=== PATIENT | male | born 1960 | race American Indian/Alaskan Native ===

== ENCOUNTER 2019-01-04 21:07 | Emergency (ER) | payer OTHER ==
--- NOTE | 2019-01-04 21:17 | Emergency Department Report ---
Chief Complaint: Chest Pain Stated Complaint: CHEST PAINS Time Seen by Provider: 01/04/19 21:12 - HPI History of Present Illness: Pt c/o diffuse CP that began today radiates to the right shoulder and right scapula describes pain as pressure took tums due to thinking it was from indigestion without any relief no N/V, no diaphoresis (+) SOB pt states he took hctz 25mg, hydralazine 50 mg, and diltiazem 90 mg this morning markedly elevated BP, will send to main ED MSE complete MSE screening note: Focused history and physical exam performed. ED Disposition for MSE Condition: Stable
[2019-01-04 22:13] LABS: Basophils % (Auto) 0.3 % (0.0-1.8); Eosinophils # (Auto) 0.1 K/mm3 (0.0-0.4); Eosinophils % (Auto) 0.4 % (0.0-4.3); Hemoglobin 14.8 gm/dl (11.8-15.2); Lymphocytes # (Auto) 2.8 K/mm3 (1.2-5.4); Lymphocytes % (Auto) 19.6 % (13.4-35.0); Mean Corpuscular HGB Conc 34 % (32-34); Mean Corpuscular Volume 89 fl (84-94); Monocytes # (Auto) 1.2 K/mm3 (0.0-0.8); Platelet Count 246 K/mm3 (140-440); Red Blood Count 4.97 M/mm3 (3.65-5.03); Red Cell Distribution Width 13.6 % (13.2-15.2)
[2019-01-04 22:19] LABS: INR 0.87 (0.87-1.13)
[2019-01-04 22:20] LABS: Partial Thromboplastin Time 28.6 Sec. (24.2-36.6)
[2019-01-04] MEDS ORDERED: NORMODYNE IV ONE (22:31)
[2019-01-04] MEDS ORDERED: MORPHINE IV ONE (22:32)
[2019-01-04 22:36] LABS: Alanine Aminotransferase 23 units/L (7-56); Albumin 4.3 g/dL (3.9-5); BUN/Creatinine Ratio 16; Blood Urea Nitrogen 19 mg/dL (9-20); Calcium 9.5 mg/dL (8.4-10.2); Hemolysis Index 15
[2019-01-04] MEDS ORDERED: BENADRYL IV ONE (23:07)
[2019-01-04] MEDS ORDERED: BENADRYL ONE (23:10)
--- NOTE | 2019-01-04 23:59 | XRay Report ---
PROCEDURE: XR CHEST ROUTINE 2V TECHNIQUE: PA and lateral chest radiographs were obtained. HISTORY: CP COMPARISONS: None. FINDINGS: Heart: Normal. Mediastinum/Vessels: Normal. Lungs/Pleural space: Normal. Bony thorax: No acute osseous abnormality. IMPRESSION: Normal examination. This document is electronically signed by Divina Hernandez DO., January 04 2019 11:56:55 PM ET
[2019-01-05] MEDS ORDERED: HCTZ PO ONE (01:50)
[2019-01-05] MEDS ORDERED: APRESOLINE PO ONE (01:50)
--- NOTE | 2019-01-05 02:20 | Emergency Department Report ---
ED General Adult HPI - General Chief complaint: Chest Pain Stated complaint: CHEST PAINS Time Seen by Provider: 01/04/19 21:12 Source: patient Mode of arrival: Ambulatory Limitations: No Limitations - History of Present Illness Initial comments: Patient is a 58-year-old male who presents with right chest. The chest pain. Patient states that this occurred while was waken up. He denies cough or any shortness of breath. It radiates to his right shoulder. Nothing makes the pain better and nothing makes it worse. Patient works as a cook. Patient states that he doesn't smoke and he doesn't drink. Severity scale (0 -10): 2 - Related Data Home Medications Medication Instructions Recorded Confirmed Last Taken dilTIAZem [CarDIZEM] 90 mg PO DAILY 01/04/19 01/04/19 01/04/19 Previous Rx's Medication Instructions Recorded Last Taken Type Diclofenac Sodium [Voltaren] 100 gm TP Q6H #1 gel..gram. 01/05/19 Unknown Rx Hydralazine HCl 50 mg PO BID #30 tablet 01/05/19 Unknown Rx hydroCHLOROthiazide [HCTZ] 25 mg PO DAILY #30 tablet 01/05/19 Unknown Rx Allergies Allergy/AdvReac Type Severity Reaction Status Date / Time No Known Allergies Allergy Verified 01/04/19 23:16 ED Review of Systems ROS: Stated complaint: CHEST PAINS Other details as noted in HPI Constitutional: denies: chills, fever Eyes: denies: eye pain, eye discharge, vision change ENT: denies: ear pain, throat pain Respiratory: denies: cough, shortness of breath, wheezing Cardiovascular: chest pain. denies: palpitations Endocrine: no symptoms reported Gastrointestinal: denies: abdominal pain, nausea, diarrhea Genitourinary: denies: urgency, dysuria Musculoskeletal: denies: back pain, joint swelling, arthralgia Skin: denies: rash, lesions Neurological: denies: headache, weakness, paresthesias Psychiatric: denies: anxiety, depression Hematological/Lymphatic: denies: easy bleeding, easy bruising ED Past Medical Hx - Past Medical History Previous Medical History?: Yes Hx Hypertension: Yes - Surgical History Past Surgical History?: No - Social History Smoking Status: Current Every Day Smoker - Medications Home Medications: Home Medications Medication Instructions Recorded Confirmed Last Taken Type dilTIAZem [CarDIZEM] 90 mg PO DAILY 01/04/19 01/04/19 01/04/19 History Diclofenac Sodium [Voltaren] 100 gm TP Q6H #1 gel..gram. 01/05/19 Unknown Rx Hydralazine HCl 50 mg PO BID #30 tablet 01/05/19 Unknown Rx hydroCHLOROthiazide [HCTZ] 25 mg PO DAILY #30 tablet 01/05/19 Unknown Rx ED Physical Exam - General Limitations: No Limitations General appearance: alert, in no apparent distress - Head Head exam: Present: atraumatic, normocephalic - Eye Eye exam: Present: normal appearance - ENT ENT exam: Present: mucous membranes moist - Neck Neck exam: Present: normal inspection - Respiratory Respiratory exam: Present: normal lung sounds bilaterally. Absent: respiratory distress - Cardiovascular Cardiovascular Exam: Present: regular rate, normal rhythm. Absent: systolic murmur, diastolic murmur, rubs, gallop - GI/Abdominal GI/Abdominal exam: Present: soft, normal bowel sounds - Rectal Rectal exam: Present: deferred - Extremities Exam Extremities exam: Present: normal inspection - Back Exam Back exam: Present: normal inspection - Neurological Exam Neurological exam: Present: alert, oriented X3 - Psychiatric Psychiatric exam: Present: normal affect, normal mood - Skin Skin exam: Present: warm, dry, intact, normal color. Absent: rash ED Course Vital Signs 01/04/19 01/04/19 01/04/19 21:11 21:12 22:15 Temperature 97.8 F 97.8 F Pulse Rate 88 82 Respiratory 18 18 33 H Rate Blood Pressure 228/112 228/112 192/99 O2 Sat by Pulse 98 99 96 Oximetry 01/04/19 01/04/19 01/04/19 22:31 23:00 23:09 Temperature Pulse Rate 75 70 79 Respiratory 9 L 16 Rate Blood Pressure 192/99 187/104 187/104 O2 Sat by Pulse 99 97 Oximetry 01/04/19 01/05/19 01/05/19 23:30 00:01 00:17 Temperature Pulse Rate 70 78 72 Respiratory 11 L 14 25 H Rate Blood Pressure 187/104 167/113 167/113 O2 Sat by Pulse 98 Oximetry 01/05/19 01/05/19 00:30 01:00 Temperature Pulse Rate 69 68 Respiratory 13 12 Rate Blood Pressure 178/103 163/97 O2 Sat by Pulse Oximetry ED Medical Decision Making - Lab Data Result diagrams: 01/04/19 21:35 01/04/19 21:35 Lab Results 01/04/19 01/04/19 01/04/19 Range/Units 21:35 21:35 21:35 WBC 14.5 H (4.5-11.0) K/mm3 RBC 4.97 (3.65-5.03) M/mm3 Hgb 14.8 (11.8-15.2) gm/dl Hct 44.0 (35.5-45.6) % MCV 89 (84-94) fl MCH 30 (28-32) pg MCHC 34 (32-34) % RDW 13.6 (13.2-15.2) % Plt Count 246 (140-440) K/mm3 Lymph % (Auto) 19.6 (13.4-35.0) % [place] % (Auto) 8.0 H (0.0-7.3) % Eos % (Auto) 0.4 (0.0-4.3) % Baso % (Auto) 0.3 (0.0-1.8) % Lymph # 2.8 (1.2-5.4) K/mm3 [place] # 1.2 H (0.0-0.8) K/mm3 Eos # 0.1 (0.0-0.4) K/mm3 Baso # 0.0 (0.0-0.1) K/mm3 Seg Neutrophils % 71.7 H (40.0-70.0) % Seg Neutrophils # 10.4 H (1.8-7.7) K/mm3 PT 12.4 (12.2-14.9) Sec. INR 0.87 (0.87-1.13) APTT 28.6 (24.2-36.6) Sec. Sodium 144 (137-145) mmol/L Potassium 3.4 L (3.6-5.0) mmol/L Chloride 101.1 (98-107) mmol/L Carbon Dioxide 31 H (22-30) mmol/L Anion Gap 15 mmol/L BUN 19 (9-20) mg/dL Creatinine 1.2 (0.8-1.5) mg/dL Estimated GFR > 60 ml/min BUN/Creatinine Ratio 16 % Glucose 126 H (75-100) mg/dL Calcium 9.5 (8.4-10.2) mg/dL Total Bilirubin 0.20 (0.1-1.2) mg/dL AST 24 (5-40) units/L ALT 23 (7-56) units/L Alkaline Phosphatase 75 (35-129) units/L Troponin T < 0.010 (0.00-0.029) ng/mL Total Protein 7.1 (6.3-8.2) g/dL Albumin 4.3 (3.9-5) g/dL Albumin/Globulin Ratio 1.5 % - EKG Data -: EKG Interpreted by Me - EKG Data 01/05/19 02:22 EKG shows sinus rhythm no ST segment elevation prolonged VA interval no axis deviation. Impression abnormal EKG - Radiology Data Radiology results: report reviewed Chest X-ray: Shows no acute cardiopulmonary disease - Medical Decision Making Chief medical diagnosis: Muscle strain Differential diagnosis: Non-STEMI, pulmonary edema, R abnormality, arrhythmia EKG, iv pain medicine, cbc, bmp, troponin and x-ray patient is feeling better laboratory workup is unremarkable also and patient home with voltaren and i will discharge patient Critical care attestation.: If time is entered above; I have spent that time in minutes in the direct care of this critically ill patient, excluding procedure time. ED Disposition Clinical Impression: Right-sided chest pain Disposition: DC-01 TO HOME OR SELFCARE Is pt being admited?: No Does the pt Need Aspirin: No Condition: Stable Instructions: Chest Pain (ED), Costochondritis (ED) Prescriptions: Diclofenac Sodium [Voltaren] 100 gm TP Q6H #1 gel..gram. Hydralazine HCl 50 mg PO BID #30 tablet hydroCHLOROthiazide [HCTZ] 25 mg PO DAILY #30 tablet Referrals: [facility] MD COOKIE [Primary Care Provider] - 3-5 Days
[2019-01-05 04:01] VITALS: BP 183/107
== END 2019-01-05 04:04 | disposition home or self-care (01) ==
LOC: ED 21:07
DX: R07.89 Other chest pain (principal); I10 Essential (primary) hypertension; F17.200 Nicotine dependence, unspecified, uncomplicated
CPT/HCPCS: 36415; 71046; 80053; 84484; 85025; 85610; 85730; 93005; 93010; 96374; 96375; 99284; J1200; J2270